=== PATIENT | female | born 1985 | race Caucasian/White ===

== ENCOUNTER 2020-05-16 06:10 | Outpatient (CLI) | payer BC ==
[~2020-05-16] VITALS: Ht 155 cm; Wt 88.6 kg
[2020-05-16] MEDS ORDERED: NORG1TAB14 PO (13:49)
== END 2020-05-16 14:06 ==
LOC: PREOP 06:10 → EDSTATUS 12:30 → PREOP 14:06
PROVIDERS: ATTEND Obstetrics & Gynecology
DX: Z01.812 Encounter for preprocedural laboratory examination (principal); N93.8 Other specified abnormal uterine and vaginal bleeding

== ENCOUNTER → 2020-05-16 | Outpatient (CLI) | payer BC ==
[~2020-05-16] MED LIST: NORG1TAB14 PO
--- NOTE | 2020-05-16 09:18 | Diagnostic Imaging Report ---
EXAMINATION: US Abdomen limited. TECHNIQUE: Multiple Real-time grayscale images were obtained over the right upper quadrant in various projections. HISTORY: RUQ PAIN. COMPARISON: None available. FINDINGS: Pancreas: The visualized portions of the pancreas are normal. Liver: The liver is normal in echogenicity and contour. No focal lesions are seen. The portal vein is patent with hepatopetal flow. Gallbladder and biliary tree: Gallbladder is normal without wall thickening, pericholecystic fluid, or sonographic Thakkar sign. There is no biliary ductal dilation. The common duct measures 0.4 cm. Right kidney: The right kidney is normal without hydronephrosis. Aorta and IVC: The visualized aorta and inferior vena cava are normal. Fluid: No ascites is seen. IMPRESSION: Unremarkable right upper quadrant ultrasound. Dictated by: Dictated on workstation # [id number]
== END ==
LOC: RAD 08:45
PROVIDERS: ATTEND Obstetrics & Gynecology
DX: R10.11 Right upper quadrant pain (principal)
CPT/HCPCS: 76705

== ENCOUNTER 2020-05-23 11:10 | Day surgery (SDC) | payer BC ==
[~2020-05-23] VITALS: Ht 154.9 cm; Wt 88.6 kg
[2020-05-23] VITALS (11 sets, daily range): BP systolic 112–134; BP diastolic 53–84
--- NOTE | 2020-05-23 08:12 | Progress Note-Pre Operative ---
Pre-Operative Progress Note H&P Reviewed The H&P was reviewed, patient examined and no changes noted. Date Seen by Provider: May 23, 2020 Time Seen by Provider: 12:30 Date H&P Reviewed: May 23, 2020 Time H&P Reviewed: 12:30 Pre-Operative Diagnosis: DUB/Menorrhagia/CPP CARLOS ECHEVERRIA MD May 23, 2020 08:12
--- NOTE | 2020-05-23 08:13 | Progress Note-Post Operative ---
Post-Operative Progess Note Surgeon (s)/Clinical Research Monitor (s) Surgeon CARLOS ECHEVERRIA MD Clinical Research Monitor: Yesy Pre-Operative Diagnosis DUB/Menorrhagia/CPP Post-Operative Diagnosis sameWith endometriosis and with abnormal appearing appendix and with pathology pending Procedure & Operative Findings Date of Procedure 05/23/20 Procedure Performed/Findings TLH with BSO And appendectomy Anesthesia Type GETA Estimated Blood Loss Estimated blood loss (mL): Minimal Specimens/Packing Specimens Removed Uterus and tubes, Ovaries and appendix CARLOS ECHEVERRIA MD May 23, 2020 08:13
[2020-05-23] MEDS ORDERED: ceFAZolin INJECTION 1,000 MG in WATER (STERILE) FOR INJECTION 10 ML IV ONE (11:30)
[2020-05-23] MEDS ORDERED: LIDOCAINE PF 2% 5 ML (XYLOCAINE) VIAL ONE (11:38)
[2020-05-23] MEDS ORDERED: MIDAZOLAM 2 MG/2 ML (VERSED) VIAL ONE (11:38)
[2020-05-23] MEDS ORDERED: ONDANSETRON 4 MG/2 ML (SDV) Z0FRAN ONE (11:38)
[2020-05-23] MEDS ORDERED: SUCCINYLCHOLINE INJ 100 MG/5 ML SYR/VIAL ONE (11:38)
[2020-05-23] MEDS ORDERED: proPOfol 200 MG/20 ML (DIPRIVAN) VIAL IV ONE (11:38)
[2020-05-23] MEDS ORDERED: fentaNYL INJ 100 MCG/2 ML AMP ONE ×2 (11:38→17:25)
[2020-05-23] MEDS ORDERED: ROCURONIUM 10 MG/ML 5 ML SYRINGE IV ONE ×2 (11:38→14:21)
[2020-05-23] MEDS: LACTATED RINGERS 1,000 ML IV PRN ×2 (11:52→13:54)
[2020-05-23 11:54] LABS: BASOPHILS % (AUTO) 0 % (0-10); EOSINOPHILS # (AUTO) 0.1 10^3/uL (0.0-0.3); EOSINOPHILS % (AUTO) 1 % (0-10); HEMATOCRIT 44 % (35-52); HEMOGLOBIN 14.5 g/dL (11.5-16.0); LYMPHOCYTES # (AUTO) 1.3 10^3/uL (1.0-4.0); LYMPHOCYTES % (AUTO) 18 % (12-44); MEAN CORPUSCULAR HEMOGLOBIN 30 pg (25-34); MEAN CORPUSCULAR HGB CONC 33 g/dL (32-36); MEAN CORPUSCULAR VOLUME 89 fL (80-99); MEAN PLATELET VOLUME 11.5 fL (9.0-12.2); MONOCYTES # (AUTO) 0.4 10^3/uL (0.0-1.0); MONOCYTES % (AUTO) 6 % (0-12); NEUTROPHILS # (AUTO) 5.5 10^3/uL (1.8-7.8); NEUTROPHILS % (AUTO) 75 % (42-75); PLATELET COUNT 231 10^3/uL (130-400); WHITE BLOOD COUNT 7.3 10^3/uL (4.3-11.0)
[2020-05-23] MEDS ORDERED: LIDOCAINE/EPI 1%-1:100,000 (XYLOCAINE) 20ML ONE (12:02)
[2020-05-23] MEDS ORDERED: ACHD5005 PO (12:52)
[2020-05-23] MEDS ORDERED: IBUP-1780 PO (12:52)
[2020-05-23] MEDS ORDERED: DOCU-143 PO (12:52)
--- NOTE | 2020-05-23 12:54 | Discharge Inst-Surgical ---
Discharge Inst-Surgical Depart Medication/Instructions New, Converted or Re-Newed RX: RX on Chart Consults/Follow Up Patient Instructions: As directed Orders & Referrals Follow Up Appt: Return to clinic on Monday, May 25, 2020 at 9:30 AM for staple removal Call to make follow up appt. for patient in 4 weeks. Activity: Rest for 24 hours, than as tolerated. Wound Care: May remove Band-Aid tomorrow. Replace as desired. Keep incisions clean and dry. Wash daily with soap and water. Please call in RX to patient pharmacy. Diet: As tolerated shower or tub bathe as desired. No driving for 24 hours, no alcoholic beverages for 24 hours, and nothing per vagina (no tampons, douching, or intercourse) for 8 weeks. Patient to return to the clinic as soon as possible for: Temperature greater than 101F, Severe Pain, Foul discharge from incision or vagina, Excessive Bleeding (more than a period). Activity Activity as Tolerated: No Diet Discharge Diet: No Restrictions CARLOS ECHEVERRIA MD May 23, 2020 12:54
[2020-05-23] MEDS ORDERED: NEOSTIGMINE 3 MG/3 ML VIAL ONE (13:55)
[2020-05-23] MEDS ORDERED: HYDROmorphone 2 MG/ML VIAL (DILAUDID) ONE ×2 (13:55→14:50)
[2020-05-23] MEDS ORDERED: GLYCOPYRROLATE 0.2 MG/ML (ROBINUL) 2 ML VIAL ONE (13:55)
[2020-05-23] MEDS ORDERED: HYDROcodone/APAP 5 MG/325 MG (LORTAB) TAB PO PRN (14:15)
[2020-05-23] MEDS ORDERED: D5 LR IV SOLUTION 1,000 ML IV SCH (14:15)
[2020-05-23] MEDS ORDERED: ONDANSETRON 4 MG/2 ML (SDV) Z0FRAN IVP PRN ×2 (14:15→14:30)
[2020-05-23] MEDS ORDERED: fentaNYL INJ 100 MCG/2 ML AMP IVP PRN (14:15)
[2020-05-23] MEDS ORDERED: SEVOFLURANE (ULTANE) 15 ML INHAL SOLN ONE (14:21)
[2020-05-23] MEDS ORDERED: KETOROLAC 30 MG/ML VIAL ONE (14:27)
[2020-05-23] MEDS ORDERED: morphine INJ 10 MG/ML 1ML (SYR OR VIAL) IVP ONE (14:30)
[2020-05-23] MEDS ORDERED: HYDROmorphone 2 MG/ML VIAL (DILAUDID) IV ONE (14:30)
[2020-05-23] MEDS: KETOROLAC 30 MG/ML VIAL IVP SCH ×2 (14:50→21:13)
--- NOTE | 2020-05-23 15:02 | Anesthesia-General Post-Op ---
General Patient Condition Mental Status/LOC: Same as Preop Cardiovascular: Satisfactory Nausea/Vomiting: Absent Respiratory: Satisfactory Pain: Controlled Complications: Absent Post Op Complications Complications None Follow Up Care/Instructions Patient Instructions None needed. Anesthesia/Patient Condition Patient Condition Patient is doing well, no complaints, stable vital signs, no apparent adverse anesthesia problems. GRECIA MENDIETA DO May 23, 2020 15:02
[2020-05-23] MEDS ORDERED: SIMETHICONE 80 MG (MYLICON) CHEW ONE (17:26)
[2020-05-23] MEDS: SIMETHICONE 80 MG (MYLICON) CHEW PO SCH ×2 (17:40→21:13)
[2020-05-23] MEDS: DOCUSATE SODIUM 100 MG (COLACE) CAP PO SCH (21:13)
--- NOTE | 2020-05-24 02:44 | OPERATIVE REPORT ---
DATE OF SERVICE: 05/23/2020 PREOPERATIVE DIAGNOSES: Dysfunctional uterine bleeding, menorrhagia and chronic pelvic pain. POSTOPERATIVE DIAGNOSES: Dysfunctional uterine bleeding, menorrhagia and chronic pelvic pain with abnormal appearing appendix as well as endometriosis. OPERATIVE PROCEDURE: Total laparoscopic hysterectomy with bilateral salpingo-oophorectomy and laparoscopic appendectomy. OPERATIVE DESCRIPTION: With the patient in the supine position under satisfactory general anesthesia, she was repositioned in dorsal lithotomy position in the [facility] and then prepped and draped in the usual fashion for abdominal and vaginal surgery. Murphy catheter was placed in the urinary bladder after placing Jenna II manipulator in the usual manner using a 6 mm x 8 cm uterine probe and a 25 mm colpotomy ring. Sutures of #1 Vicryl were placed in the 3 and 9 o'clock position of the cervix to affix the uterus to the manipulator. The patient was brought in low dorsal lithotomy position after placing the Jenna II. The upper abdomen was exposed. A 12 mm incision was made approximately 10 cm superior to the umbilicus. Veress needle was placed through that incision into the abdominal cavity. Correct placement was confirmed with water drop test. The abdomen was insufflated with 2.4 liters of carbon dioxide. The Veress needle was removed and a 12 mm Optiview laparoscopic port was placed. An 8 mm ports were placed 9 cm lateral to the umbilicus at a level approximately 3 cm above the umbilicus. All three port sites were infiltrated with 1% lidocaine with epinephrine prior to incision. The patient was now placed in Trendelenburg allowing the bowel spill out of the pelvis. The da Wesley column was advanced on the patient and docked, and operative instrument placed in right and left lateral ports and I retired to the da Wesley console. At the console using the vessel sealer on the right and bipolar fenestrated grasper on the left, the pelvis was first examined. Both ovaries appeared to have fairly significant endometriosis as did both fallopian tubes. The uterus was somewhat mottled and appeared to have endometriosis on the surface as well as likely containing adenomyosis. The laparoscope was rotated. The appendix was identified. It was tortuous, edematous and indurated in area. Decision was made to go ahead with appendectomy. With the vessel sealer in place, the mesoappendix was clamped, cauterized and divided across to the base of the appendix and then left at that point for removal after the hysterectomy. Decision was made to go ahead with bilateral oophorectomy as the patient clearly had endometriosis in both ovarian fossae and on the ovaries and wanted to minimize her chances for recurrence of her pain. The right fallopian tube and ovary were elevated. The ureter was identified medial to the IP ligament. The IP ligament was then clamped, cauterized and divided with the vessel sealer continuing stepwise across the mesovarium and to the round ligament, across the broad ligament and then down on to the cardinal ligament, allowing for removal of the tube and ovary with the uterus. The same procedure performed on the left, taking care to avoid the ureter as well on the left. The anterior lower uterine segment peritoneum was then exposed and using a monopolar shear in place of the vessel sealer, the peritoneum was divided. The bladder was carefully dissected down off the lower uterine segment. There was some scar tissue in this area secondary to the patient's previous three C-sections, but the dissection was uneventful. With the bladder out of the way, a colpotomy incision was started at 12 o'clock position onto the colpotomy ring that was continued circumferentially until the entire colpotomy ring was exposed and then the uterus with tubes and ovaries still attached was extracted through the vagina. The vaginal cuff was closed with a single suture of V-Loc barbed suture starting from the right angle and continuing across the vaginal cuff to the left angle in the usual manner in a running fashion. Good hemostasis was achieved. Good reapproximation was evident and both the uterine artery pedicles had been included in the angle stitches closing the vaginal cuff. The peritoneum was brought back down onto the vaginal cuff with the last stitch of the suture. Attention was now turned back to the appendix. The da Wesley portion of the procedure being completed, the da Wesley instruments were removed as was the column and then using the da Wesley scope in the left lateral port, grasper in the right lateral port and an Endo-MILTON in the umbilical port, the appendix was grasped and elevated. Endo-MILTON was placed across the base of the appendix and fired, severing the appendix from its attachments. The appendix was placed in an Endobag and brought out through the umbilical port and sent to pathology for permanent section. The stump of the appendix was copiously irrigated as well the pelvis. Irrigant was aspirated out. The stump of the appendix was treated with several drops of Betadine solution. The procedure was complete at this point. The operative instruments were removed as were the ports. The abdomen was evacuated of the insufflating gas in process of removing the ports. The skin incisions were hemostatic, and they were closed with ana. The fascia at the supraumbilical incision was closed with [id number] suture of 2-0 Vicryl. Speculum was replaced in the vagina and the vaginal cuff examined, it was completely reapproximated and completely hemostatic. Sponge and needle counts were correct on completion of the procedure. Blood loss was minimal for the case. The patient tolerated the procedure well and was uneventfully awakened from her general anesthesia and transferred to recovery room in stable condition. Job ID: [id number] DocumentID: [id number] Dictated Date: 05/23/2020 17:56:05 Mental Health Orderly Date: 05/24/2020 02:44:14 Dictated By: CARLOS ECHEVERRIA MD
[2020-05-24] MEDS: KETOROLAC 30 MG/ML VIAL IVP SCH (04:29)
[2020-05-24 04:30] VITALS: BP 133/65
[2020-05-24 08:30] VITALS: BP 121/68
--- NOTE | 2020-05-24 08:30 | Progress Note ---
Standard Progress Note Progress Notes/Assess & Plan Date Seen by a Provider: May 24, 2020 Time Seen by a Provider: 08:28 Progress/Assessment & Plan This patient is without complaint. She is ambulating, voiding, tolerating oral intake well and has good pain control. Vital Signs Date Time Temp Pulse Resp B/P (MAP) Pulse Ox O2 Delivery O2 Flow Rate FiO2 05/24/20 04:30 36.8 52 16 133/65 (87) 97 Room Air 05/23/20 23:47 37.0 81 16 112/73 (86) 97 Room Air 05/23/20 21:12 36.8 92 16 121/63 (82) 96 Room Air 05/23/20 15:25 36.2 64 16 128/78 (95) 100 Room Air 05/23/20 15:20 Room Air 05/23/20 15:10 36.4 14 122/60 (80) 100 Room Air 05/23/20 15:00 Room Air 05/23/20 15:00 14 130/53 (78) 100 OxyMask 2 05/23/20 14:50 14 122/84 (97) 100 OxyMask 2 05/23/20 14:45 OxyMask 4 05/23/20 14:40 14 127/70 (89) 100 OxyMask 4 05/23/20 14:30 17 127/75 (92) 100 OxyMask 6 05/23/20 14:22 OxyMask 8 05/23/20 14:20 16 126/75 (92) 100 OxyMask 8 05/23/20 14:14 OxyMask 10 05/23/20 14:14 36.1 16 123/74 (90) 100 OxyMask 10 05/23/20 11:55 36.4 64 18 134/69 (90) 99 Room Air I & O 05/24/20 07:00 Intake Total 2960 ml Output Total 4345 ml Balance -1385 ml Vital signs are stable. Patient is afebrile. The abdomen is benign. The surgical incision dressings are clean and dry Extremities show no clubbing or cyanosis. There is no Homans' sign. Assessment and plan postoperative day #1 doing well. Plan for discharge home with follow-up in clinic Final Diagnosis Dysfunctional uterine bleeding/menorrhagia and chronic pelvic pain CARLOS ECHEVERRIA MD May 24, 2020 08:30
[2020-05-24] MEDS ORDERED: ESTRADIOL 1 MG TAB (ESTRACE) PO SCH ×2 (09:00)
[2020-05-24] MEDS ORDERED: IBUPROFEN 800 MG (MOTRIN) TAB PO ONE (10:07)
[2020-05-24] MEDS: DOCUSATE SODIUM 100 MG (COLACE) CAP PO SCH (10:20)
[2020-05-24] MEDS ORDERED: IBUPROFEN 800 MG (MOTRIN) TAB PO SCH (14:15)
== END 2020-05-24 10:30 | disposition home or self-care (01) ==
LOC: SDC 11:10 → WS 15:25 → SDC 05-24 10:30
PROVIDERS: ATTEND Obstetrics & Gynecology
DX: N92.0 Excessive and frequent menstruation with regular cycle (principal); N93.8 Other specified abnormal uterine and vaginal bleeding; G89.29 Other chronic pain; N80.0 Endometriosis of uterus; N76.0 Acute vaginitis; N80.9 Endometriosis, unspecified; K38.8 Other specified diseases of appendix; N83.292 Other ovarian cyst, left side; N83.291 Other ovarian cyst, right side; Z98.51 Tubal ligation status; Z88.5 Allergy status to narcotic agent; Z79.899 Other long term (current) drug therapy; Z80.49 Family history of malignant neoplasm of other genital organs; Z80.41 Family history of malignant neoplasm of ovary
CPT/HCPCS: 36415; 84703; 85025; 86850; 86900; 86901; 87081; 88304; 88307

== ENCOUNTER → 2020-05-31 | Outpatient (CLI) | payer BC ==
[~2020-05-31] MED LIST changes: +ACHD5005 PO; +CATHETER FLUSH 10 ML SYR IV PRN; +DOCU-143 PO; +IBUP-1780 PO
--- NOTE | 2020-05-31 10:08 | Diagnostic Imaging Report ---
INDICATION: Right upper quadrant pain. Patient was administered 5.2 mCi technetium 99m Choletec intravenously and imaging over the abdomen was performed. At 45 minutes, patient ingested 8 ounces of Ensure and a gallbladder ejection fraction was calculated. There is homogeneous uptake of activity by the liver with prompt excretion of activity into the gallbladder and common duct. There is normal passage of activity into the small bowel. Gallbladder ejection fraction is 42%. IMPRESSION: Normal HIDA scan and gallbladder ejection fraction. Dictated by: Dictated on workstation # [id number]
== END ==
LOC: CARD 08:00
PROVIDERS: ATTEND Obstetrics & Gynecology
DX: R10.11 Right upper quadrant pain (principal)
CPT/HCPCS: 78227; A9537

== ENCOUNTER 2020-06-11 05:32 | Outpatient (CLI) | payer BC ==
[~2020-06-11] VITALS: Ht 157.5 cm; Wt 88.6 kg
[~2020-06-11 05:32] MED LIST changes: -CATHETER FLUSH 10 ML SYR IV PRN
[2020-06-11] MEDS ORDERED: ESTRADIOL PO (14:26)
== END 2020-06-11 15:33 | disposition home or self-care (01) ==
LOC: PREOP 05:32
PROVIDERS: ATTEND Podiatrist Foot & Ankle Surgery
DX: Z01.818 Encounter for other preprocedural examination (principal)

== ENCOUNTER 2020-06-15 11:31 | Day surgery (SDC) | payer BC ==
[~2020-06-15] VITALS: Ht 157.5 cm; Wt 88.6 kg
[2020-06-15] VITALS (8 sets, daily range): BP systolic 92–146; BP diastolic 54–73
[~2020-06-15 11:31] MED LIST changes: +ESTRADIOL PO
[2020-06-15] MEDS ORDERED: BUPIVACAINE 0.5% 30 ML (SENSORCAINE) VIAL ONE (11:43)
[2020-06-15] MEDS ORDERED: LIDOCAINE 1% INJ 20 ML 20 ML VIAL ONE (11:43)
[2020-06-15] MEDS ORDERED: ceFAZolin INJECTION 1,000 MG in WATER (STERILE) FOR INJECTION 10 ML IV ONE (11:45)
[2020-06-15] MEDS ORDERED: LACTATED RINGERS 1,000 ML IV PRN (11:45)
[2020-06-15] MEDS ORDERED: ONDANSETRON 4 MG/2 ML (SDV) Z0FRAN ONE (11:49)
[2020-06-15] MEDS ORDERED: PROPOFOL INJECTION 50 ML IV ONE ×2 (11:49→13:04)
[2020-06-15] MEDS ORDERED: MIDAZOLAM 2 MG/2 ML (VERSED) VIAL ONE ×2 (11:50→12:35)
[2020-06-15] MEDS ORDERED: fentaNYL INJ 100 MCG/2 ML AMP ONE (11:50)
--- NOTE | 2020-06-15 12:35 | Progress Note-Pre Operative ---
Pre-Operative Progress Note H&P Reviewed The H&P was reviewed, patient examined and no changes noted. Date Seen by Provider: June 15, 2020 Time Seen by Provider: 12:35 Date H&P Reviewed: June 15, 2020 Time H&P Reviewed: 12:35 Pre-Operative Diagnosis: Plantar Fasciitis, left MELICARLOS DPDavion June 15, 2020 12:35
[2020-06-15] MEDS ORDERED: proPOfol 200 MG/20 ML (DIPRIVAN) VIAL IV ONE (13:05)
--- NOTE | 2020-06-15 13:19 | Anesthesia-General Post-Op ---
MAC Patient Condition Mental Status/LOC: Same as Preop Cardiovascular: Satisfactory Nausea/Vomiting: Absent Respiratory: Satisfactory Pain: Controlled Complications: Absent Post Op Complications Complications None Follow Up Care/Instructions Patient Instructions None needed. Anesthesiology Discharge Order Discharge Order Patient is doing well, no complaints, stable vital signs, no apparent adverse anesthesia problems. No complications reported per nursing. LAMINE KIMBLE CRNA June 15, 2020 13:19
--- NOTE | 2020-06-15 13:24 | Progress Note-Post Operative ---
Post-Operative Progess Note Surgeon (s)/Grooving Lathe Tender (s) Surgeon CARLOS GARRISON DPM Grooving Lathe Tender: none Pre-Operative Diagnosis Plantar Fasciitis, left Post-Operative Diagnosis same Procedure & Operative Findings Date of Procedure 06/15/20 Procedure Performed/Findings Endoscopic plantar fascial release, left Anesthesia Type General Estimated Blood Loss Estimated blood loss (mL): Minimal Specimens/Packing Specimens Removed none CARLOS GARRISON DPM June 15, 2020 13:24
[2020-06-15] MEDS ORDERED: ACHD5005 PO (13:28)
[2020-06-15] MEDS ORDERED: fentaNYL INJ 100 MCG/2 ML AMP IVP ONE (13:30)
[2020-06-15] MEDS ORDERED: LACTATED RINGERS 1,000 ML IV SCH (13:30)
[2020-06-15] MEDS ORDERED: morphine INJ 10 MG/ML 1ML (SYR OR VIAL) IVP ONE (13:30)
[2020-06-15] MEDS ORDERED: MEPERIDINE (DEMEROL) INJ 50 MG/ML IVP ONE (13:30)
[2020-06-15] MEDS ORDERED: ONDANSETRON 4 MG/2 ML (SDV) Z0FRAN IVP PRN (13:30)
[2020-06-15] MEDS ORDERED: HYDROcodone/APAP 5 MG/325 MG (LORTAB) TAB ONE (14:04)
[2020-06-15] MEDS ORDERED: HYDROcodone/APAP 5 MG/325 MG (LORTAB) TAB PO ONE (14:15)
--- NOTE | 2020-06-15 23:19 | OPERATIVE REPORT ---
DATE OF SERVICE: 06/15/2020 SURGEON: Lizzeth Garrison DPM. PREOPERATIVE DIAGNOSIS: Plantar fasciitis, left. POSTOPERATIVE DIAGNOSIS: Plantar fasciitis, left. PROCEDURE: Endoscopic plantar fascial release, left. WOUND CLASS: Clean. ANESTHESIA: General. HEMOSTASIS: Pneumatic thigh tourniquet at 300 mmHg. INDICATIONS: This 35-year-old female presents complaining of a chronic left heel pain. Conservative therapy is met with unsatisfactory results and the patient is agreeable to surgical intervention after risks and complications were discussed at length. No guarantees were extended to the patient and she is willing to proceed. DESCRIPTION OF PROCEDURE: The patient was brought back to the operating table, placed in secure supine position. General anesthetic was then induced. Pneumatic thigh tourniquet was placed on left lower extremity over several layers of padding. The left foot was then prepped and draped in normal sterile manner. Appropriate timeout was performed. The left foot was again prepped and draped in normal sterile manner and then elevated, allowed to exsanguinate after which the tourniquet was inflated to 300 mmHg. Attention was then directed to the medial aspect of the left heel where a 0.5 cm vertical incision was created. This incision site was predetermined utilizing x-ray findings. The incision was deepened in the same plane with blunt dissection down palpating the inferior aspect of the plantar fascia, which was from the overlying adipose tissue. Next, a blunt blade was introduced into the inferior aspect of the plantar fascia except the rest of the adipose tissue from the inferior aspect of the plantar fascia. An obturator and cannula were then introduced into the medial incision along the inferior aspect of the plantar fascia tenting the lateral skin, which a second 0.5 cm vertical incision was created allowing the obturator and cannula to pass through the second incision. The obturator was withdrawn allowing the cannula to stay in place and for visualization of the inferior aspect of the plantar fascia, left foot. Next, utilizing direct visualization, the medial third of the plantar fascia were released with a hook followed by a triangular blade. Percutaneous palpation noted good reduction of the tension to the plantar fascia. The instrumentation and camera were withdrawn from the foot after which flushing of the cannula was performed with normal saline. The cannula was then withdrawn from the foot. The area was thoroughly cleansed with normal saline after which closure was performed with 4-0 Prolene in a horizontal mattress type stitch to the medial and lateral skin incisions. Postoperative injection consisted of 10 mL of 0.5% Marcaine injected in a local infusion to the surgical site. Postoperative injection also included 10 mg of dexamethasone into the plantar medial aspect of the left heel. Postoperative dressing consisted of Betadine soaked Adaptic, sterile 4 x 4, sterile Kerlix all secured with a Coban wrap. The patient tolerated the anesthesia and procedure well and was transported from the operating room to the recovery room with vital signs stable and vascular status intact to all digits of the left foot. The patient was given postoperative instructions as well as prescription for hydrocodone. The patient has been taking hydrocodone in the past successfully for previous surgeries, but could not tolerate oxycodone. The patient is to follow up in my office in 10 days' period of time or sooner if necessary. She is to be nonweightbearing for the first 24 hours and then light pressure on the foot to tolerance after that. Job ID: [id number] DocumentID: [id number] Dictated Date: 06/15/2020 13:34:38 Healthcare Applications Analyst Date: 06/15/2020 23:18:32 Dictated By: LIZZETH GARRISON DPM
== END 2020-06-15 14:57 | disposition home or self-care (01) ==
LOC: SDC 11:31
PROVIDERS: ATTEND Podiatrist Foot & Ankle Surgery
DX: M72.2 Plantar fascial fibromatosis (principal); F32.9 Major depressive disorder, single episode, unspecified; K21.9 Gastro-esophageal reflux disease without esophagitis; Z79.899 Other long term (current) drug therapy; Z98.890 Other specified postprocedural states; Z80.41 Family history of malignant neoplasm of ovary; Z80.49 Family history of malignant neoplasm of other genital organs
CPT/HCPCS: 87081